=== PATIENT | female | born 1995 | race Caucasian/White ===

== ENCOUNTER → 2017-04-14 | Outpatient (CLI) | payer OTHER ==
[~2017-04-14] MED LIST: NEXPLANON68 MG IL; NO MEDICATIONS; PRENATAL1 TA1 PO
== END | disposition home or self-care (01) ==
LOC: CRAD 14:39
DX: Z01.812 Encounter for preprocedural laboratory examination (principal); E66.01 Morbid (severe) obesity due to excess calories
CPT/HCPCS: 36415; 84443; 86677; G0463

== ENCOUNTER → 2017-06-09 | Outpatient (CLI) | payer OTHER ==
--- NOTE | ~2017-06-09 | CR63 ---
[facility] A Service of [facility] & [facility] RADIOLOGY TEXT RESULTS PATIENT: DOLORES HERNANDEZ LOCATION: [facility] : [birth year] UNIT #: [id number] AGE: [address]: James Glover MD SEX: F ORDER DR: [id number] [facility] [address] [place], [place] [address] [id number] O MR#: [id number] Acc #: [id number] NAME: DOLORES HERNANDEZ : 1995 SEX: F STUDY DATE/TIME: 06/09/2017 9:23 UNIT: [facility] ROOM: STUDY DESCRIPTION: CR Chest 2 View Attending Physician: James Glover M.D. Referring Physician: James Glover M.D. Ordering Physician: James Glover M.D. Primary Care Physician: Sridevi Miles M.D. MEDICAL IMAGING REPORT This report is preliminary unless electronic signature is present EXAM Chest 06/09/2017 [facility] HISTORY 22-year-old woman; preop clearance for laparoscopic adjustable gastric band placement and possible paraesophageal hernia repair. Morbid obesity. Patient gives history of acute pancreatitis, as well. COMPARISON Portable chest 10/17/2016. FINDINGS Two-view chest demonstrates a large body habitus. Cardiac size and configuration are normal. Hilar structures and mediastinal contours are preserved. Bilateral lungs are expanded and clear. IMPRESSION Negative chest. Large body habitus noted. Dictated by... Epi Mcclain M.D. THIS IS AN ELECTRONICALLY VERIFIED REPORT Epi Mcclain M.D. at 06/09/2017 2:39 PM Chris TD: 06/09/2017 12:39 JOB #: [id number] MEDICAL IMAGING REPORT Page 1 of 1 COPY
--- NOTE | ~2017-06-09 | CR97 ---
[facility] A Service of [facility] & [facility] RADIOLOGY TEXT RESULTS PATIENT: DOLORES HERNANDEZ LOCATION: [facility] : [birth year] UNIT #: [id number] AGE: [address]: James Glover MD SEX: F ORDER DR: [id number] [facility] [address] [place], [place] [address] [id number] O MR#: [id number] Acc #: [id number] NAME: DOLORES HERNANDEZ : 1995 SEX: F STUDY DATE/TIME: 06/09/2017 9:35 UNIT: [facility] ROOM: STUDY DESCRIPTION: CR Esophagram Attending Physician: James Glover M.D. Referring Physician: James Glover M.D. Ordering Physician: James Glover M.D. MEDICAL IMAGING REPORT This report is preliminary unless electronic signature is present EXAM Esophagram HISTORY Preop evaluation for bariatric surgery. TECHNIQUE Esophagram performed with 5 spot images and less than 1 minute of fluoroscopy. FINDINGS The esophagus is normal in course and caliber. There is normal peristalsis and no mass, stricture, fold thickening or hiatal hernia. IMPRESSION Normal esophagram. Dictated by... Kain Tobias M.D. THIS IS AN ELECTRONICALLY VERIFIED REPORT Kain Tobias M.D. at 06/14/2017 10:04 AM TEV/pcl TD: 06/09/2017 18:07 JOB #: [id number] MEDICAL IMAGING REPORT Page 1 of 1 COPY
--- NOTE | ~2017-06-09 | EKG ---
PATIENT: DOLORES HERNANDEZ UNIT #: [id number] Ventricular Rate: 62 BPM Atrial Rate: 62 BPM P-R Interval: 124 ms QRS Duration: 84 ms Q-T Interval: 414 ms QTC Calculation(Bezet): 420 ms P Alleman: 42 degrees Calculated R Alleman: 14 degrees Calculated T Alleman: 24 degrees Diagnosis Line: Normal sinus rhythm Diagnosis Line: Normal ECG Diagnosis Line: No previous ECGs available Diagnosis Line: Confirmed by JAKI MORENO MD ([id number]) on 06/09/2017 Diagnosis Line: 5:43:46 PM INTERPRETING MD: JOSH CREWS
[2017-06-09 09:07] LABS: HEMATOCRIT 41.8 % (35.0-45.0); MEAN CELL VOLUME 87.1 FL (83-96); MEAN CORPUSCULAR HEMOGLOBIN 29.1 PG (28-34); MEAN CORPUSCULAR HGB CONC 33.4 g/dL (30-36); MEAN PLATELET VOLUME 8.4 FL (6.5-11.5); RED BLOOD COUNT 4.79 X10e (3.90-5.30); RED CELL DISTRIBUTION WIDTH 13.6 % (11.0-15.5); WHITE BLOOD COUNT 6.6 X10e3 (4.0-10.5)
[2017-06-09 09:56] LABS: ALBUMIN SERUM 4.1 g/dL (3.5-5.0); BILIRUBIN,TOTAL 0.4 mg/dL (0.2-2.0); BUN/CREATININE RATIO 8.18; CALCIUM SERUM 9.2 mg/dL (8.4-10.2); CREATININE SERUM 1.1 mg/dL (0.6-1.4); GLOM FILT RATE Estimated 70.2 mL/min (>60); POTASSIUM 4.2 mmol/L (3.5-5.1); PROTEIN TOTAL SERUM 6.9 g/dL (6.0-8.3)
== END | disposition home or self-care (01) ==
LOC: CRAD 08:00 → CAMB 08:30
PROVIDERS: Surgery
DX: Z01.818 Encounter for other preprocedural examination (principal)
CPT/HCPCS: 36415; 71020; 74220; 80053; 80061; 84443; 84703; 85027; 93005

== ENCOUNTER → 2017-06-21 | Day surgery (SDC) | payer OTHER ==
--- NOTE | ~2017-06-21 | OR ---
Unit #: [id number] #: [id number] Patient: DOLORES HERNANDEZ [id number] [address] [address] [id number] O MR#: [id number] NAME: DOLORES HERNANDEZ ROOM: Date of Procedure: 06/21/2017 Admission Date: 06/21/2017 Surgeon: James Glover M.D. : 1995 Attending Physician: James Glover M.D. Primary Care Physician: Sridevi Miles OPERATIVE REPORT PREOPERATIVE DIAGNOSIS Chronic morbid obesity, body mass index of 42. POSTOPERATIVE DIAGNOSES 1. Chronic morbid obesity, body mass index of 42. 2. Paraesophageal hiatal hernia. PROCEDURES PERFORMED 1. Laparoscopic adjustable gastric band. 2. Laparoscopic paraesophageal hiatal hernia repair. BALER OPERATOR Jens Reddy M.D ANESTHESIA General. ESTIMATED BLOOD LOSS Minimal. IV FLUIDS 800 crystalloid. COMPLICATIONS None. INDICATIONS FOR PROCEDURE The patient is a 22-year-old with chronic morbid obesity. DESCRIPTION OF PROCEDURE The patient was taken to the operating room and placed in supine position. General anesthesia was induced. The abdomen was prepped and draped. A 3-cm incision was then made left of the midline. A 10-mm Visiport was then placed intraabdominal under direct vision. The abdomen was insufflated to 15 mmHg with CO2. The patient was then placed in a steep reversed Trendelenburg. General inspection of the abdomen revealed what appeared to be a paraesophageal hernia. This was identified with a defect at the diaphragm using anterior palpation with the instrument. We then made a small incision in the subxiphoid region. A Terri liver retractor was then placed intraabdominal and used to retract the left lobe of the liver upward to further expose the paraesophageal hernia and GE junction. I then placed a 5-mm port in the right upper quadrant, a 10-mm Unit #: [id number] #: [id number] Patient: DOLORES HERNANDEZ port in the left upper quadrant, and another 5-mm port in the left lower quadrant. The stomach was retracted medial and downward. Upon retracting the stomach, we took down the paraesophageal ligament, exposing the right and left felicita at the paraesophageal hernia. Any hernia sac was reduced. We then repaired the paraesophageal hernia using interrupted #0 Ethibond sutures in a [id number] type fashion. This formed a snug repair to the anterior esophagus. We then retracted the stomach medially and further exposed the angle of His using Bovie electrocautery. The stomach was then retracted laterally. We then took down the hepatogastric ligament with Bovie electrocautery. This exposed the right felicita. Using blunt dissection, I created a retrogastric tunnel from this point to the angle of His. The band was then placed intraabdominal through the 10-mm port site. This was then brought through the retrogastric tunnel in a pars flaccida technique. The band was then closed anteriorly to form a 20-mL to 25-mL anterior gastric pouch. The fundus was then secured to the anterior pouch to prevent movement around the stomach using two interrupted #0 Ethibond sutures. A third suture was then used as a gathering stitch from the lesser curve to the anterior stomach, gathering and imbricating the remaining fundus of the stomach. The tubing was then brought out through the midline 10-mm port site. All ports and the Terri liver retractor were removed under direct vision with no evidence of abdominal hemorrhage. A polypropylene mesh was then secured to the posterior face of the laparoscopic band port. This was secured using #0 Ethibond suture. This was then cut to shape. The port was then connected to the tubing and placed into a subcutaneous pocket just anterior to the rectus sheath. Its position was then confirmed. All tubing was then placed intraabdominal. The wounds were then closed with interrupted 4-0 Vicryl. The patient tolerated the procedure well and was sent to the recovery room in good condition. Dictated by... Emmett Tejada/yeny TD: 06/21/2017 16:11 JOB #: [id number] OPERATIVE REPORT Page 1 of 1 X James Glover MD X PROCEDURE OPERATIVE NOTE
--- NOTE | ~2017-06-21 | CR7 ---
[facility] A Service of [facility] & [facility] RADIOLOGY TEXT RESULTS PATIENT: DOLORES HERNANDEZ LOCATION: [facility] : [birth year] UNIT #: [id number] AGE: [address]: James Glover MD SEX: F ORDER DR: [id number] [facility] [address] [place], [place] [address] [id number] O MR#: [id number] Acc #: [id number] NAME: DOLORES HERNANDEZ : 1995 SEX: F STUDY DATE/TIME: 06/21/2017 09:27 UNIT: [facility] ROOM: STUDY DESCRIPTION: CR Abdomen Single AP View Attending Physician: James Glover M.D. Ordering Physician: James Glover M.D. Primary Care Physician: Sridevi Miles M.D. MEDICAL IMAGING REPORT This report is preliminary unless electronic signature is present EXAM Abdomen one-view 06/21/2017 0927 hours HISTORY Morbid obesity, postop lap-band placement today. COMPARISON Preop esophagram 06/09/2017 FINDINGS Single supine view of the abdomen is performed. The hemidiaphragms and the left flank and the lower pelvis are excluded from the field of view. There is a lap-band present overlying the left T10 and T11 costovertebral junctions oriented at 55 degrees from vertical. Radiopaque tubing courses to a port in the left lower quadrant overlying the superior aspect left sacroiliac joint. Bowel gas pattern is unremarkable. IMPRESSION Postop lap-band placement with band oriented at 55 degrees from vertical. Radiopaque tubing courses inferiorly to a port overlying the suppressed at the left sacroiliac joint. Bowel gas pattern is unremarkable. Dictated by... Mari More M.D. THIS IS AN ELECTRONICALLY VERIFIED REPORT Mari More M.D. at 06/21/2017 2:32 PM Yara TD: 06/21/2017 12:04 JOB #: [id number] [facility] A Service of [facility] RADIOLOGY TEXT RESULTS PATIENT: DOLORES HERNANDEZ [id number] [birth year] UNIT #: [id number] AGE: [address]: James Glover MD SEX: F ORDER DR: MEDICAL IMAGING REPORT Page 1 of 1 COPY
== END | disposition home or self-care (01) ==
LOC: CSUR 06:23
DX: E66.01 Morbid (severe) obesity due to excess calories (principal); K44.9 Diaphragmatic hernia without obstruction or gangrene; J45.909 Unspecified asthma, uncomplicated; K21.9 Gastro-esophageal reflux disease without esophagitis; G43.009 Migraine without aura, not intractable, without status migrainosus; G47.30 Sleep apnea, unspecified; Z68.41 Body mass index [BMI] 40.0-44.9, adult; Z88.0 Allergy status to penicillin; Z88.1 Allergy status to other antibiotic agents; Z79.899 Other long term (current) drug therapy; Z98.890 Other specified postprocedural states
CPT/HCPCS: 74000; 84703; C1781; J0330; J1650; J1885; J2250; J2405; J3010; J3370; L8699